=== PATIENT | male | born 1955 | race Caucasian/White ===

== ENCOUNTER 2019-08-25 15:03 | Emergency (ER) | payer OTHER ==
[~2019-08-25] VITALS: Ht 180.3 cm; Wt 131.5 kg
[~2019-08-25 15:03] MED LIST: Bactrim Ds Tab1 EACH PO; Benadryl 50 mg50 MG PO; CIPR500 PO; HYDACE5 PO; METPRE4DP PO; OXYC10TA19 PO; Percocet 5-3251 EACH PO; Roxicodone5 MG PO; TAMS.4ER PO; Zofran Odt8 MG SL
[2019-08-25 16:19] LABS: BASOPHILS ABSOLUTE AUTO 0.05 K/mm3 (0.00-0.23); BASOPHILS PERCENT AUTO 1 % (0-2); EOSINOPHILS ABSOLUTE AUTO 0.71 K/mm3 (0.00-0.68); EOSINOPHILS PERCENT AUTO 8 % (0-6); Hematocrit 49.3 % (37.0-53.0); Hemoglobin 15.9 g/dL (13.5-17.5); IMMATURE GRAN ABSOLUTE AUTO 0.05 K/mm3 (0.00-0.10); IMMATURE GRAN PERCENT AUTO 1 % (0-1); LYMPHOCYTES ABSOLUTE AUTO 2.86 K/mm3 (0.84-5.20); LYMPHOCYTES PERCENT AUTO 33 % (21-46); MONOCYTES PERCENT AUTO 10 % (4-13); Mean Corpuscular HGB 29.2 pg (26.0-34.0); Mean Corpuscular HGB Conc 32.3 g/dL (31.5-36.5); Mean Corpuscular Volume 91 fL (80-100); Mean Platelet Volume 9.7 fL (9.1-12.4); NEUTROPHILS ABSOLUTE AUTO 4.14 K/mm3 (1.96-9.15); NEUTROPHILS PERCENT AUTO 48 % (41-73); Platelet Count 273 K/mm3 (150-400); RDW Coefficient Variation 12.9 % (11.7-14.2); RDW Standard Deviation 42.6 fL (35.1-46.3); Red Blood Cell Count 5.45 M/mm3 (4.30-5.90); White Blood Cell Count 8.71 K/mm3 (4.00-11.30)
[2019-08-25 16:37] LABS: Alanine Aminotransfer (ALT/SGP 38 U/L (12-78); Albumin, Blood 3.6 g/dL (3.4-5.0); Albumin/Globulin Ratio 0.7 (0.8-1.8); Alk Phos 84 U/L (50-136); Anion Gap 2 mmol/L (6-16); Aspartate Aminotrans (AST/SGOT 17 U/L (12-37); Bilirubin, Total 0.2 mg/dL (0.1-1.0); Blood Urea Nitrogen 14 mg/dL (8-24); Bun/Creatinine Ratio 16.4 (12.0-20.0); CO2, Blood 30 mmol/L (21-32); Calcium, Blood 9.1 mg/dL (8.5-10.1); Chloride, Blood 105 mmol/L (98-108); Creatinine, Blood 0.86 mg/dL (0.60-1.20); Globulin, Blood 5.2 g/dL (2.2-4.0); Glomerular Filtration Rate >60 (60-); Glucose, Blood 106 mg/dL (70-99); Potassium, Blood 3.8 mmol/L (3.5-5.5); Sodium, Blood 137 mmol/L (136-145); Total Protein, Blood 8.8 g/dL (6.4-8.2)
[2019-08-25] MEDS ORDERED: Aerochamber1 EACH XX (17:30)
[2019-08-25] MEDS ORDERED: ALBU90OI INH (17:30)
[2019-08-25] MEDS ORDERED: PRED20 PO (17:30)
== END 2019-08-25 17:58 | disposition home or self-care (01) ==
LOC: ER 15:03
PROVIDERS: Physician Assistant
DX: J20.9 Acute bronchitis, unspecified (principal); F17.210 Nicotine dependence, cigarettes, uncomplicated; Z79.899 Other long term (current) drug therapy
CPT/HCPCS: 36415; 71046; 80053; 85025; 93005; 93010; 94640; 99283-25; J7512

== ENCOUNTER 2021-04-22 19:44 | Emergency (ER) | payer MEDICARE, OTHER ==
[~2021-04-22] VITALS: Ht 180.3 cm; Wt 117.9 kg
[~2021-04-22 19:44] MED LIST changes: +ALBU90OI INH; +Aerochamber1 EACH XX; +GUAIFENESIN AC473 M1 PO; +PRED20 PO; +Prednisone20 MG PO
[2021-04-22] MEDS ORDERED: ONDA4 PO (20:47)
[2021-04-22] MEDS ORDERED: BENZ100A PO (20:47)
== END 2021-04-22 23:27 | disposition home or self-care (01) ==
LOC: ER 19:44
DX: U07.1 COVID-19 (principal); F17.210 Nicotine dependence, cigarettes, uncomplicated; Z79.52 Long term (current) use of systemic steroids
CPT/HCPCS: 36415; 96374; 96375; 99283-25; J1885; J2405; J7030; M0243; Q0243

== ENCOUNTER 2024-05-10 11:02 | Emergency (ER) | payer MEDICARE, OTHER ==
[~2024-05-10] VITALS: Ht 180.3 cm; Wt 124.7 kg
[~2024-05-10 11:02] MED LIST changes: +BENZ100A PO; +ONDA4 PO
[2024-05-10 11:39] VITALS: BP 145/77
[2024-05-10 12:30] LABS: Influenza A, PCR NEGATIVE (NEGATIVE); Influenza B, PCR NEGATIVE (NEGATIVE); Resp Syncytial Virus, PCR NEGATIVE (NEGATIVE); SARS-Cov-2 (COVID-19) PCR, MMC NEGATIVE (NEGATIVE)
[2024-05-10] MEDS ORDERED: AMOX500 PO (14:26)
[2024-05-10] MEDS ORDERED: METPRE4DP PO (14:27)
== END 2024-05-10 15:00 | disposition home or self-care (01) ==
LOC: ER 11:02
PROVIDERS: Physician Assistant
DX: J18.9 Pneumonia, unspecified organism (principal); F17.210 Nicotine dependence, cigarettes, uncomplicated; Z79.52 Long term (current) use of systemic steroids; Z79.899 Other long term (current) drug therapy
CPT/HCPCS: 0241U; 71046; 99283-25

== ENCOUNTER 2024-08-21 10:30 | Emergency (ER) | payer MEDICARE, OTHER ==
[~2024-08-21] VITALS: Ht 180.3 cm; Wt 115.7 kg
[~2024-08-21 10:30] MED LIST changes: +AMOX500 PO
[2024-08-21 10:43] VITALS: BP 142/104
[2024-08-21] MEDS ORDERED: TRIDERM28.4 GM TOP (10:48)
[2024-08-21] MEDS ORDERED: CEPH500 PO (10:48)
[2024-08-23] MEDS ORDERED: TRIDERM28.4 GM TOP (10:53)
[2024-08-23] MEDS ORDERED: CEPH500 PO (10:53)
== END 2024-08-21 10:49 | disposition home or self-care (01) ==
LOC: ER 10:30
DX: L03.114 Cellulitis of left upper limb (principal); L03.113 Cellulitis of right upper limb; F17.210 Nicotine dependence, cigarettes, uncomplicated; Z79.899 Other long term (current) drug therapy
CPT/HCPCS: 99282

== ENCOUNTER → 2024-08-22 | Outpatient (CLI) | payer MEDICARE ==
[~2024-08-22] MED LIST changes: +CEPH500 PO; +TRIDERM28.4 GM TOP
[2024-08-22 19:29] LABS: BASOPHILS ABSOLUTE AUTO 0.08 K/mm3 (0.00-0.23); BASOPHILS PERCENT AUTO 1 % (0-2); EOSINOPHILS ABSOLUTE AUTO 0.54 K/mm3 (0.00-0.68); EOSINOPHILS PERCENT AUTO 4 % (0-6); Hematocrit 41.9 % (37.0-53.0); Hemoglobin 14.1 g/dL (13.5-17.5); IMMATURE GRAN ABSOLUTE AUTO 0.11 K/mm3 (0.00-0.10); IMMATURE GRAN PERCENT AUTO 1 % (0-1); LYMPHOCYTES ABSOLUTE AUTO 2.64 K/mm3 (0.84-5.20); LYMPHOCYTES PERCENT AUTO 20 % (21-46); MONOCYTES ABSOLUTE AUTO 2.15 K/mm3 (0.16-1.47); MONOCYTES PERCENT AUTO 16 % (4-13); Mean Corpuscular HGB 28.7 pg (26.0-34.0); Mean Corpuscular HGB Conc 33.7 g/dL (31.5-36.5); Mean Corpuscular Volume 85 fL (80-100); Mean Platelet Volume 8.6 fL (9.1-12.4); NEUTROPHILS ABSOLUTE AUTO 7.57 K/mm3 (1.96-9.15); NEUTROPHILS PERCENT AUTO 58 % (41-73); Platelet Count 269 K/mm3 (150-400); RDW Coefficient Variation 13.9 % (11.7-14.2); Red Blood Cell Count 4.92 M/mm3 (4.30-5.90); White Blood Cell Count 13.09 K/mm3 (4.00-11.30)
[2024-08-22 19:52] LABS: Albumin/Globulin Ratio 0.5 (0.8-1.8); Bilirubin, Total 0.6 mg/dL (0.1-1.0); C-REACTIVE PROTEIN, EXT RANGE 9.47 mg/dL (0.000-0.300); Calcium, Blood 8.9 mg/dL (8.5-10.1); Creatinine, Blood 0.75 mg/dL (0.60-1.20); Potassium, Blood 3.9 mmol/L (3.5-5.5)
[2024-08-25 10:27] LABS: ANTI-NUCLEAR AB ANA,IGG ELISA Detected
[2024-08-26 07:18] LABS: ANA PATTERN Speckled; ANTINUCLEAR AB (ANA),HEP-2,IGG Detected (<1:80); CYTOPLASM PATTERN Speckled
[2024-08-26 21:32] LABS: SMITH/RNP (ENA) AB, IGG 5 Units (0-19)
[2024-08-26 23:11] LABS: DOUBLE-STRANDED DNA IGG ELISA 19 IU (0-24)
[2024-08-27 23:50] LABS: JO-1 HISTIDYL-TRNA SYNTHET,IGG 5 AU/mL (0-40); SCLERODERMA (SCL-70) AB,IGG 52 AU/mL (0-40); SMITH (ENA) ANTIBODY, IGG 5 AU/mL (0-40); SSA-52 (RO52) (ENA) AB, IGG 4 AU/mL (0-40); SSA-60 (RO60) (ENA) AB, IGG 1 AU/mL (0-40); SSB (LA) (ENA) ANTIBODY, IGG 2 AU/mL (0-40)
== END ==
LOC: LAB SHORT 19:20 → LAB 19:20
PROVIDERS: Physician Assistant Medical
DX: L30.8 Other specified dermatitis (principal)
CPT/HCPCS: 80053; 85025; 85651; 86038; 86039; 86140; 86225; 86235; 88305